=== PATIENT | male | born 1980 | race Caucasian/White ===

== ENCOUNTER 2016-12-28 12:20 | Emergency (ER) | payer OTHER ==
[2016-12-28] MEDS ORDERED: SODIUM CHLORIDE 0.9% 1,000 ML IV STA ×2 (13:30)
[2016-12-28] MEDS ORDERED: MORPHINE SULFATE 4 MG/ML SYRINGE IV STA (13:30)
[2016-12-28] MEDS ORDERED: RX INFO: IV CONTRAST WAS GIVEN 1 EACH MISC MISCELLANE PRN (13:30)
--- NOTE | 2016-12-28 13:39 | ED ---
General Adult HPI - General Chief complaint: Abdominal Pain Stated complaint: Abdominal Pain Time Seen by Provider: 12/28/16 13:24 Source: patient, RN notes reviewed, old records reviewed Mode of arrival: ambulatory Limitations: no limitations - History of Present Illness Initial comments: This is a 36-year-old male here for evaluation of bowel pain. Patient has history of ulcerative colitis. Patient will today with right-sided abdominal pain right periumbilical pain, he awoke with the pain around 8:00 and pain is persisted, got worse since. He felt nauseous but no vomiting, no recent diarrhea. Patient doesn't think he's had a fever and has no modifying factors for his pain - Related Data Home Medications Medication Instructions Recorded Confirmed Diazepam [Valium] 5 mg PO BID 12/28/16 12/28/16 Allergies Allergy/AdvReac Type Severity Reaction Status Date / Time Steroids AdvReac Intermediate Swelling Uncoded 08/27/14 04:33 Review of Systems ROS Statement: Those systems with pertinent positive or pertinent negative responses have been documented in the HPI. ROS Other: All systems not noted in ROS Statement are negative. Past Medical History Past Medical History: GERD/Reflux Additional Past Medical History / Comment(s): Lyme's disease, colitis History of Any Multi-Drug Resistant Organisms: None Reported Past Surgical History: Hernia Repair Additional Past Surgical History / Comment(s): inguinial Hernia repair 2009 Past Anesthesia/Blood Transfusion Reactions: No Reported Reaction Past Psychological History: No Psychological Hx Reported Smoking Status: Current every day smoker Past Alcohol Use History: Daily, Heavy Past Drug Use History: None Reported - Past Family History Father Additional Family Medical History / Comment(s): Heart Disease General Exam Limitations: no limitations General appearance: alert, in no apparent distress Head exam: Present: atraumatic, normocephalic, normal inspection Eye exam: Present: normal appearance, PERRL, EOMI. Absent: scleral icterus, conjunctival injection, periorbital swelling ENT exam: Present: normal exam, mucous membranes moist Neck exam: Present: normal inspection. Absent: tenderness, meningismus, lymphadenopathy Respiratory exam: Present: normal lung sounds bilaterally. Absent: respiratory distress, wheezes, rales, rhonchi, stridor Cardiovascular Exam: Present: regular rate, normal rhythm, normal heart sounds. Absent: systolic murmur, diastolic murmur, rubs, gallop, clicks GI/Abdominal exam: Present: soft, tenderness, guarding, normal bowel sounds. Absent: distended, rebound, rigid Extremities exam: Present: normal inspection, full ROM, normal capillary refill. Absent: tenderness, pedal edema, joint swelling, calf tenderness Back exam: Present: normal inspection Neurological exam: Present: alert, oriented X3, CN II-XII intact Psychiatric exam: Present: normal affect, normal mood Skin exam: Present: warm, dry, intact, normal color. Absent: rash Course Vital Signs 12/28/16 12/28/16 12:46 14:32 Temperature 98.9 F 98.0 F Pulse Rate 63 62 Respiratory 18 20 Rate Blood Pressure 127/68 140/81 O2 Sat by Pulse 97 98 Oximetry - Reevaluation(s) Reevaluation #1: 12/28/16 14:49 Patient's pain at this time is resolved Medical Decision Making - Medical Decision Making 36 male to the ER for evaluation of bowel pain, CT and pelvis is negative lab work is normal patient can be discharged home, follow-up with family doctor for recurrent colitis - Lab Data Result diagrams: 12/28/16 13:15 12/28/16 13:15 Lab Results 12/28/16 12/28/16 Range/Units 13:15 13:15 WBC 7.3 (3.8-10.6) k/uL RBC 5.26 (4.30-5.90) m/uL Hgb 16.9 (13.0-17.5) gm/dL Hct 49.1 (39.0-53.0) % MCV 93.4 (80.0-100.0) fL MCH 32.1 (25.0-35.0) pg MCHC 34.4 (31.0-37.0) g/dL RDW 12.2 (11.5-15.5) % Plt Count 247 (150-450) k/uL Neutrophils % 73 % Lymphocytes % 19 % Monocytes % 4 % Eosinophils % 1 % Basophils % 1 % Neutrophils # 5.4 (1.3-7.7) k/uL Lymphocytes # 1.4 (1.0-4.8) k/uL Monocytes # 0.3 (0-1.0) k/uL Eosinophils # 0.1 (0-0.7) k/uL Basophils # 0.1 (0-0.2) k/uL Sodium 140 (137-145) mmol/L Potassium 4.2 (3.5-5.1) mmol/L Chloride 104 (98-107) mmol/L Carbon Dioxide 25 (22-30) mmol/L Anion Gap 11 mmol/L BUN 13 (9-20) mg/dL Creatinine 0.96 (0.66-1.25) mg/dL Est GFR (MDRD) Af Amer >60 (>60 ml/min/1.73 sqM) Est GFR (MDRD) Non-Af >60 (>60 ml/min/1.73 sqM) Glucose 73 L (74-99) mg/dL Calcium 9.5 (8.4-10.2) mg/dL Total Bilirubin 0.9 (0.2-1.3) mg/dL AST 29 (17-59) U/L ALT 26 (21-72) U/L Alkaline Phosphatase 44 (38-126) U/L Total Protein 7.1 (6.3-8.2) g/dL Albumin 4.2 (3.5-5.0) g/dL Amylase 51 (30-110) U/L Lipase 75 (23-300) U/L - Radiology Data Radiology results: report reviewed (CT head and pelvis negative for acute disease), image reviewed Disposition Clinical Impression: Abdominal pain, Colitis Disposition: HOME SELF-CARE Condition: Good Instructions: Abdominal Pain (ED) Referrals: Trace De Jesus MD [Primary Care Provider] - 1-2 days
[2016-12-28 13:48] LABS: Basophils # (A) 0.1 k/uL (0-0.2); Basophils % (A) 1 %; CH 33.2; CHCM 35.7; Eosinophils # (A) 0.1 k/uL (0-0.7); Eosinophils % (A) 1 %; HCT 49.1 % (39.0-53.0); HDW 2.61; HGB 16.9 gm/dL (13.0-17.5); Luc # (Auto) 0.14; Luc % (Auto) 2; Lymphocytes # (A) 1.4 k/uL (1.0-4.8); Lymphocytes % (A) 19 %; MCH 32.1 pg (25.0-35.0); MCHC 34.4 g/dL (31.0-37.0); MCV 93.4 fL (80.0-100.0); Mean Platelet Volume 6.4; Monocytes # (A) 0.3 k/uL (0-1.0); Monocytes % (A) 4 %; Neutrophils # (A) 5.4 k/uL (1.3-7.7); Neutrophils % (A) 73 %; RBC 5.26 m/uL (4.30-5.90); RDW 12.2 % (11.5-15.5); WBC 7.3 k/uL (3.8-10.6); WBC (Perox) 7.22
[2016-12-28 13:56] LABS: ALT 26 U/L (21-72); AST 29 U/L (17-59); Alkaline Phosphatase 44 U/L (38-126); Amylase 51 U/L (30-110); Anion Gap 11 mmol/L; Blood Urea Nitrogen 13 mg/dL (9-20); Calcium 9.5 mg/dL (8.4-10.2); Carbon Dioxide 25 mmol/L (22-30); Chloride 104 mmol/L (98-107); Glucose 73 mg/dL (74-99); Non-African American GFR(MDRD) >60 (>60 ml/min/1.73 sqM); Potassium 4.2 mmol/L (3.5-5.1); Sodium 140 mmol/L (137-145); Total Bilirubin 0.9 mg/dL (0.2-1.3); Total Protein 7.1 g/dL (6.3-8.2)
--- NOTE | 2016-12-28 14:37 | CT ---
EXAMINATION TYPE: CT abdomen pelvis w con DATE OF EXAM: 12/28/2016 2:23 PM COMPARISON: 08/27/2014 HISTORY: RLQ pain CT DLP: 474.5 mGycm Automated exposure control for dose reduction was used. CONTRAST: CT scan of the abdomen pelvis is performed with IV Contrast, patient injected with 100 mL of Omnipaqu e 300. FINDINGS- LUNG BASES- No significant abnormality is appreciated. LIVER/GB- No gross abnormality is appreciated. PANCREAS- No gross abnormality is seen. SPLEEN- No gross abnormality is seen. ADRENALS- No gross abnormality is seen. KIDNEYS/BLADDER- no hydronephrosis nephrolithiasis or renal mass. BOWEL- no bowel dilatation. Appendix is not identified. LYMPH NODES- No greater than 1cm abdominal or pelvic lymph nodes are appreciated. OSSEOUS STRUCTURES- No significant abnormality is seen. OTHER-aorta of normal caliber. IMPRESSION- 1. Appendix is not seen with certainty. No definite inflammatory changes within the right lower quadr ant. Correlate clinically. 2. Nonspecific gas pattern. 3. No evidence of hydronephrosis or nephrolithiasis.
[2016-12-28 15:12] VITALS: BP 140/85; PULSE 65; RESP 18; TEMP 99
== END 2016-12-28 15:11 | disposition home or self-care (01) ==
LOC: EC 12:20
DX: K52.9 Noninfective gastroenteritis and colitis, unspecified (principal); Z88.8 Allergy status to other drugs, medicaments and biological substances; F17.200 Nicotine dependence, unspecified, uncomplicated; K51.90 Ulcerative colitis, unspecified, without complications
CPT/HCPCS: 36415; 80053; 82150; 83690; 85025; 74177; 96374; 96361; 99284; J2270; Q9967

== ENCOUNTER 2020-05-24 14:35 | Emergency (ER) | payer OTHER ==
[2020-05-24 14:41] VITALS: BP 117/75; PULSE 56; RESP 18; TEMP 98.4
--- NOTE | 2020-05-24 15:28 | XR ---
EXAMINATION TYPE: XR forearm LT DATE OF EXAM: 05/24/2020 COMPARISON: None HISTORY: Foreign body, pain TECHNIQUE: 2 view left forearm FINDINGS: No acute fractures or dislocations are evident. The soft tissues appear normal. No radiopaque foreign bodies are identified. IMPRESSION: 1. Normal left forearm. 2. No radiopaque foreign bodies identified.
--- NOTE | 2020-05-24 15:42 | ED ---
Recheck HPI <WillHoward - Last Filed: 05/24/20 15:54> - General Source: patient, RN notes reviewed Mode of arrival: ambulatory Limitations: no limitations <Golden Uribe - Last Filed: 05/24/20 15:57> - General Chief Complaint: Recheck/Abnormal Lab/Rx Stated Complaint: L Arm Foreign Body Time Seen by Provider: 05/24/20 14:44 - History of Present Illness Initial Comments: 40-year-old male presents emergency Department chief complaint of foreign body left forearm. Patient had an IV placed by [facility] 16 days ago. Patient states he had instant pain from it states that they had to remove it and placed IV in his other arm. Patient states that shortly after the visit he noticed swelling and pain within the vein and states that was initially a blood clot states that he cannot feel piece of plastic. Patient believes this is related to the IV catheter. Denies any swelling in his left arm denies any redness fevers or chills. Patient denies any chest pain or shortness breath (Golden Uribe) - Related Data Home Medications Medication Instructions Recorded Confirmed diazePAM [Valium] 5 mg PO BID 12/28/16 12/28/16 Allergies Allergy/AdvReac Type Severity Reaction Status Date / Time Steroids AdvReac Intermediate Swelling Uncoded 05/24/20 14:41 Review of Systems ROS Other: All systems not noted in ROS Statement are negative. <WillHoward - Last Filed: 05/24/20 15:54> ROS Other: All systems not noted in ROS Statement are negative. <Golden Uribe - Last Filed: 05/24/20 15:57> ROS Statement: Those systems with pertinent positive or pertinent negative responses have been documented in the HPI. Past Medical History Past Medical History: GERD/Reflux Additional Past Medical History / Comment(s): Lyme's disease, colitis History of Any Multi-Drug Resistant Organisms: None Reported Past Surgical History: Hernia Repair Additional Past Surgical History / Comment(s): inguinial Hernia repair 2009 Past Anesthesia/Blood Transfusion Reactions: No Reported Reaction Past Psychological History: No Psychological Hx Reported Past Alcohol Use History: Daily, Heavy Past Drug Use History: None Reported - Past Family History Father Additional Family Medical History / Comment(s): Heart Disease <Golden Uribe - Last Filed: 05/24/20 15:57> General Exam Limitations: no limitations General appearance: alert, in no apparent distress Head exam: Present: atraumatic, normocephalic, normal inspection Respiratory exam: Present: normal lung sounds bilaterally. Absent: respiratory distress, wheezes, rales, rhonchi, stridor Cardiovascular Exam: Present: regular rate, normal rhythm, normal heart sounds. Absent: systolic murmur, diastolic murmur, rubs, gallop, clicks Extremities exam: Present: other (Left forearm there is a palpable superficial hard foreign body no erythema no swelling pulses equal bilaterally no tenderness to the left axilla) Neurological exam: Present: alert Skin exam: Present: warm, dry, intact, normal color. Absent: rash <Golden Uribe - Last Filed: 05/24/20 15:57> Course Vital Signs 05/24/20 14:38 Temperature 98.4 F Pulse Rate 56 L Respiratory 18 Rate Blood Pressure 117/75 O2 Sat by Pulse 98 Oximetry Medical Decision Making <Howard Solis - Last Filed: 05/24/20 15:54> - Medical Decision Making Patient also evaluated by myself, Dr. Solis. Patient does have left proximal forearm with isolated area proximal he 1 inch in the vein suspicious for retained glass foreign body. Patient states he had an IV just distal to this 16 days ago. Case was discussed with Dr. Parish who will follow-up with the patient the office. (Howard Solis) Disposition <Howard Solis - Last Filed: 05/24/20 15:54> Is patient prescribed a controlled substance at d/c from ED?: No Time of Disposition: :57 <Golden Uribe - Last Filed: 05/24/20 15:57> Clinical Impression: Foreign body of skin of left upper extremity Disposition: HOME SELF-CARE Condition: Stable Instructions (If sedation given, give patient instructions): Soft Tissue Foreign Body (ED) Additional Instructions: Please return to the Emergency Department if symptoms worsen or any other concerns. Referrals: Trace De Jesus MD [Primary Care Provider] - 1-2 days Edvin Fritz DO [Doctor of Osteopathic Medicine] - 1-2 days
== END 2020-05-24 16:11 | disposition home or self-care (01) ==
LOC: EC 14:35
DX: S50.852A Superficial foreign body of left forearm, initial encounter (principal); Z88.8 Allergy status to other drugs, medicaments and biological substances; X58.XXXA Exposure to other specified factors, initial encounter
CPT/HCPCS: 99283

== ENCOUNTER 2020-06-19 17:41 | Emergency (ER) | payer OTHER ==
[2020-06-19 17:48] VITALS: RESP 16; TEMP 98.4
[2020-06-19] MEDS ORDERED: DIPH,PERTUS(ACELL)TETVAC-LF 0.5 ML VIAL IM ONE (17:53)
[2020-06-19 17:56] LABS: Glucose,Whole Blood 95 mg/dL (75-99)
[2020-06-19] MEDS ORDERED: SODIUM CHLORIDE 0.9% 1,000 ML IV STA (17:56)
--- NOTE | 2020-06-19 18:03 | ED ---
General Adult HPI - General Chief complaint: Wound/Laceration Stated complaint: Lacerations Time Seen by Provider: 06/19/20 17:43 Source: patient, EMS Mode of arrival: EMS Limitations: no limitations - History of Present Illness Initial comments: Patient presents the ED by ambulance for evaluation. Patient states that he was "messing around" with his significant other when she accidentally cut the left side of his neck with the end of a "grill brush". Patient states that his wound was initially bleeding quite a bit, but then it stopped. Per EMS, the patient's wound has not been bleeding since they have been with the patient. Patient admits to drinking about 7 beers today. Patient denies illicit drug use. Patient denies intentional injury. Patient denies sustaining any other injury, headache, posterior neck pain, chest pain, dyspnea, lightheadedness or dizziness, abdominal pain, nausea or vomiting, or any other symptoms or complaints. Patient denies use of any anticoagulant medication. Patient states that he is unsure of his last tetanus shot. - Related Data Home Medications Medication Instructions Recorded Confirmed diazePAM [Valium] 5 mg PO BID PRN 12/28/16 06/19/20 Magnesium(Unknown Dose) 1 tab PO BID 06/19/20 06/19/20 Milk Thistle 150 mg PO BID 06/19/20 06/19/20 Allergies Allergy/AdvReac Type Severity Reaction Status Date / Time Steroids AdvReac Intermediate Swelling/Patient Uncoded 06/19/20 19:15 has [place] disease Review of Systems ROS Statement: Those systems with pertinent positive or pertinent negative responses have been documented in the HPI. ROS Other: All systems not noted in ROS Statement are negative. Past Medical History Past Medical History: GERD/Reflux Additional Past Medical History / Comment(s): Lyme's disease, colitis History of Any Multi-Drug Resistant Organisms: None Reported Past Surgical History: Hernia Repair Additional Past Surgical History / Comment(s): inguinial Hernia repair 2009 Past Anesthesia/Blood Transfusion Reactions: No Reported Reaction Past Psychological History: No Psychological Hx Reported Smoking Status: Current every day smoker Past Alcohol Use History: Daily, Heavy Past Drug Use History: None Reported - Past Family History Father Additional Family Medical History / Comment(s): Heart Disease General Exam Limitations: no limitations General appearance: alert, appears intoxicated Head exam: Present: atraumatic, normocephalic Eye exam: Present: PERRL, EOMI ENT exam: Present: normal oropharynx, mucous membranes moist Neck exam: Present: other (A 4.5 cm, linear, subcutaneous laceration is noted to the patient's left anterolateral neck; the wound was explored and probed (using a cotton swab) myself-> I was able to visualize the base of entire wound (base is superficial to platysma muscle) except for a very small area along the inferomedial margin of the wound which I was unable to probe to the base; no active bleeding is noted whatsoever at this time). Absent: tenderness Respiratory exam: Present: normal lung sounds bilaterally. Absent: respiratory distress, wheezes, rales, rhonchi Cardiovascular Exam: Present: regular rate, normal rhythm, normal heart sounds, other (Normal radial pulses bilaterally) GI/Abdominal exam: Present: soft. Absent: distended, tenderness, guarding Extremities exam: Present: normal inspection, full ROM. Absent: tenderness, pedal edema Back exam: Present: normal inspection. Absent: tenderness Neurological exam: Present: alert, oriented X3, CN II-XII intact. Absent: motor sensory deficit Psychiatric exam: Present: normal affect, normal mood Skin exam: Present: warm, dry, normal color Course Vital Signs 06/19/20 06/19/20 06/19/20 17:42 18:19 18:47 Temperature 98.4 F Pulse Rate 84 92 73 Respiratory 16 16 16 Rate Blood Pressure 125/75 134/81 123/92 O2 Sat by Pulse 96 95 96 Oximetry - Reevaluation(s) Reevaluation #1: 06/19/20 17:52 Case and H&P were discussed with Dr. Branch (trauma surg) after my evaluation of the patient. He agrees with not activating trauma code at this time. He recommends calling him back if the patient's wound begins to bleed. He has no further recommendations at this time. 06/19/20 19:11 Test results/CT angiogram neck report were discussed with Dr. Branch. He states that he has viewed the patient's CT images himself, and he states that he does not see anything concerning either. He agrees with plan for me to repair the patient's laceration in the ED, and he recommends/accepts observational hospital admission. He has no further recommendations at this time. 06/19/20 20:59 Dr. Branch was notified that the patient eloped from the ED. EKG Findings - EKG Comments: EKG Findings:: Normal sinus rhythm, ventricular rate of 73 bpm, no ectopy, normal UT and QRS intervals, normal QT interval, normal axis, no ST or T-wave abnormality Procedures - Laceration Laceration #1 Consent Obtained: verbal consent Indication: laceration Site: neck Size (cm): 4 Description: linear, clean Depth: simple, single layer Anesthetic Used: lidocaine 1% Anesthesia Technique: local infiltration Amount (mls): 5 Pre-repair: wound explored, irrigated extensively Type of Sutures: nylon Size of Sutures: 4-0 Number of Sutures: 8 Technique: simple, interrupted Patient Tolerated Procedure: well, no complications Medical Decision Making - Medical Decision Making I repaired the patient's laceration in the ED without complication after copious wound irrigation. Patient was refusing to be admitted to the hospital unless he was allowed to go outside for a cigarette. Despite alcohol abuse, patient was A and O 4, completely coherent and with steady gait. Because I was concerned that the patient may elope from the ED, I explained to him the risks of leaving AMA/eloping, including further morbidity, bleeding, and even in the worse case situation. Patient was able to verbalize understanding of these risks, and he promised to return to the ED once he finished his cigarette. He stated that he wasn't sure if he would agree to admission, but he would think about it and return to the ED. Patient was also counseled about neck lacerations and clearly explained return/follow up instructions in case he chose to leave AMA/elope. Patient eloped from the ED and never returned after having his cigarette. Dr. Branch was notified. - Lab Data Result diagrams: 06/19/20 17:55 06/19/20 17:55 Lab Results 06/19/20 06/19/20 06/19/20 Range/Units 17:55 17:55 17:55 WBC 8.9 (3.8-10.6) k/uL RBC 4.91 (4.30-5.90) m/uL Hgb 15.0 (13.0-17.5) gm/dL Hct 44.3 (39.0-53.0) % MCV 90.3 (80.0-100.0) fL MCH 30.5 (25.0-35.0) pg MCHC 33.8 (31.0-37.0) g/dL RDW 12.3 (11.5-15.5) % Plt Count 271 (150-450) k/uL Neutrophils % 63 % Lymphocytes % 27 % Monocytes % 4 % Eosinophils % 2 % Basophils % 1 % Neutrophils # 5.5 (1.3-7.7) k/uL Lymphocytes # 2.4 (1.0-4.8) k/uL Monocytes # 0.4 (0-1.0) k/uL Eosinophils # 0.2 (0-0.7) k/uL Basophils # 0.1 (0-0.2) k/uL PT 9.5 (9.0-12.0) sec INR 0.9 (<1.2) APTT 21.3 L (22.0-30.0) sec Sodium (137-145) mmol/L Potassium (3.5-5.1) mmol/L Chloride (98-107) mmol/L Carbon Dioxide (22-30) mmol/L Anion Gap mmol/L BUN (9-20) mg/dL Creatinine (0.66-1.25) mg/dL Est GFR (CKD-EPI)AfAm (>60 ml/min/1.73 sqM) Est GFR (CKD-EPI)NonAf (>60 ml/min/1.73 sqM) Glucose (74-99) mg/dL POC Glucose (mg/dL) 95 (75-99) mg/dL POC Glu Road Driver Gloria Bates Plasma Lactic Acid Ministerio (0.7-2.0) mmol/L Calcium (8.4-10.2) mg/dL Total Bilirubin (0.2-1.3) mg/dL AST (17-59) U/L ALT (4-49) U/L Alkaline Phosphatase (38-126) U/L Total Creatine Kinase (55-170) U/L CK-MB (CK-2) (0.0-2.4) ng/mL CK-MB (CK-2) Rel Index Troponin I (0.000-0.034) ng/mL Total Protein (6.3-8.2) g/dL Albumin (3.5-5.0) g/dL Amylase (30-110) U/L Lipase (23-300) U/L Urine Color Urine Appearance (Clear) Urine pH (5.0-8.0) Ur Specific Brooks (1.001-1.035) Urine Protein (Negative) Urine Glucose (UA) (Negative) Urine Ketones (Negative) Urine Blood (Negative) Urine Nitrite (Negative) Urine Bilirubin (Negative) Urine Urobilinogen (<2.0) mg/dL Ur Leukocyte Esterase (Negative) Urine Opiates Screen (NotDetected) Ur Oxycodone Screen (NotDetected) Urine Methadone Screen (NotDetected) Ur Propoxyphene Screen (NotDetected) Ur Barbiturates Screen (NotDetected) U Tricyclic Antidepress (NotDetected) Ur Phencyclidine Scrn (NotDetected) Ur Amphetamines Screen (NotDetected) U Methamphetamines Scrn (NotDetected) U Benzodiazepines Scrn (NotDetected) Urine Cocaine Screen (NotDetected) U Marijuana (THC) Screen (NotDetected) Serum Alcohol mg/dL Blood Type Blood Type Recheck Bld Type Recheck Status Antibody Screen Spec Expiration Date 06/19/20 06/19/20 06/19/20 Range/Units 17:55 17:55 17:55 WBC (3.8-10.6) k/uL RBC (4.30-5.90) m/uL Hgb (13.0-17.5) gm/dL Hct (39.0-53.0) % MCV (80.0-100.0) fL MCH (25.0-35.0) pg MCHC (31.0-37.0) g/dL RDW (11.5-15.5) % Plt Count (150-450) k/uL Neutrophils % % Lymphocytes % % Monocytes % % Eosinophils % % Basophils % % Neutrophils # (1.3-7.7) k/uL Lymphocytes # (1.0-4.8) k/uL Monocytes # (0-1.0) k/uL Eosinophils # (0-0.7) k/uL Basophils # (0-0.2) k/uL PT (9.0-12.0) sec INR (<1.2) APTT (22.0-30.0) sec Sodium 136 L (137-145) mmol/L Potassium 3.9 (3.5-5.1) mmol/L Chloride 106 (98-107) mmol/L Carbon Dioxide 18 L (22-30) mmol/L Anion Gap 12 mmol/L BUN 10 (9-20) mg/dL Creatinine 0.79 (0.66-1.25) mg/dL Est GFR (CKD-EPI)AfAm >90 (>60 ml/min/1.73 sqM) Est GFR (CKD-EPI)NonAf >90 (>60 ml/min/1.73 sqM) Glucose 93 (74-99) mg/dL POC Glucose (mg/dL) (75-99) mg/dL POC Glu Road Driver ID Plasma Lactic Acid Ministerio (0.7-2.0) mmol/L Calcium 9.2 (8.4-10.2) mg/dL Total Bilirubin 0.4 (0.2-1.3) mg/dL AST 26 (17-59) U/L ALT 20 (4-49) U/L Alkaline Phosphatase 50 (38-126) U/L Total Creatine Kinase 138 (55-170) U/L CK-MB (CK-2) 0.6 (0.0-2.4) ng/mL CK-MB (CK-2) Rel Index 0.4 Troponin I <0.012 (0.000-0.034) ng/mL Total Protein 6.9 (6.3-8.2) g/dL Albumin 4.4 (3.5-5.0) g/dL Amylase 55 (30-110) U/L Lipase 105 (23-300) U/L Urine Color Urine Appearance (Clear) Urine pH (5.0-8.0) Ur Specific Brooks (1.001-1.035) Urine Protein (Negative) Urine Glucose (UA) (Negative) Urine Ketones (Negative) Urine Blood (Negative) Urine Nitrite (Negative) Urine Bilirubin (Negative) Urine Urobilinogen (<2.0) mg/dL Ur Leukocyte Esterase (Negative) Urine Opiates Screen (NotDetected) Ur Oxycodone Screen (NotDetected) Urine Methadone Screen (NotDetected) Ur Propoxyphene Screen (NotDetected) Ur Barbiturates Screen (NotDetected) U Tricyclic Antidepress (NotDetected) Ur Phencyclidine Scrn (NotDetected) Ur Amphetamines Screen (NotDetected) U Methamphetamines Scrn (NotDetected) U Benzodiazepines Scrn (NotDetected) Urine Cocaine Screen (NotDetected) U Marijuana (THC) Screen (NotDetected) Serum Alcohol 200 mg/dL Blood Type A Positive Blood Type Recheck A Pos Bld Type Recheck Status No Antibody Screen NEGATIVE Spec Expiration Date 06/22/2020235406/19/20 06/19/20 Range/Units 17:55 17:55 WBC (3.8-10.6) k/uL RBC (4.30-5.90) m/uL Hgb (13.0-17.5) gm/dL Hct (39.0-53.0) % MCV (80.0-100.0) fL MCH (25.0-35.0) pg MCHC (31.0-37.0) g/dL RDW (11.5-15.5) % Plt Count (150-450) k/uL Neutrophils % % Lymphocytes % % Monocytes % % Eosinophils % % Basophils % % Neutrophils # (1.3-7.7) k/uL Lymphocytes # (1.0-4.8) k/uL Monocytes # (0-1.0) k/uL Eosinophils # (0-0.7) k/uL Basophils # (0-0.2) k/uL PT (9.0-12.0) sec INR (<1.2) APTT (22.0-30.0) sec Sodium (137-145) mmol/L Potassium (3.5-5.1) mmol/L Chloride (98-107) mmol/L Carbon Dioxide (22-30) mmol/L Anion Gap mmol/L BUN (9-20) mg/dL Creatinine (0.66-1.25) mg/dL Est GFR (CKD-EPI)AfAm (>60 ml/min/1.73 sqM) Est GFR (CKD-EPI)NonAf (>60 ml/min/1.73 sqM) Glucose (74-99) mg/dL POC Glucose (mg/dL) (75-99) mg/dL POC Glu Road Driver ID Plasma Lactic Acid Ministerio 1.9 (0.7-2.0) mmol/L Calcium (8.4-10.2) mg/dL Total Bilirubin (0.2-1.3) mg/dL AST (17-59) U/L ALT (4-49) U/L Alkaline Phosphatase (38-126) U/L Total Creatine Kinase (55-170) U/L CK-MB (CK-2) (0.0-2.4) ng/mL CK-MB (CK-2) Rel Index Troponin I (0.000-0.034) ng/mL Total Protein (6.3-8.2) g/dL Albumin (3.5-5.0) g/dL Amylase (30-110) U/L Lipase (23-300) U/L Urine Color Colorless Urine Appearance Clear (Clear) Urine pH 5.0 (5.0-8.0) Ur Specific Brooks 1.002 (1.001-1.035) Urine Protein Negative (Negative) Urine Glucose (UA) Negative (Negative) Urine Ketones Negative (Negative) Urine Blood Negative (Negative) Urine Nitrite Negative (Negative) Urine Bilirubin Negative (Negative) Urine Urobilinogen <2.0 (<2.0) mg/dL Ur Leukocyte Esterase Negative (Negative) Urine Opiates Screen Not Detected (NotDetected) Ur Oxycodone Screen Not Detected (NotDetected) Urine Methadone Screen Not Detected (NotDetected) Ur Propoxyphene Screen Not Detected (NotDetected) Ur Barbiturates Screen Not Detected (NotDetected) U Tricyclic Antidepress Not Detected (NotDetected) Ur Phencyclidine Scrn Not Detected (NotDetected) Ur Amphetamines Screen Not Detected (NotDetected) U Methamphetamines Scrn Not Detected (NotDetected) U Benzodiazepines Scrn Detected H (NotDetected) Urine Cocaine Screen Not Detected (NotDetected) U Marijuana (THC) Screen Not Detected (NotDetected) Serum Alcohol mg/dL Blood Type Blood Type Recheck Bld Type Recheck Status Antibody Screen Spec Expiration Date - Radiology Data Radiology results: report reviewed (CT angiogram neck is negative), image reviewed (Chest x-ray shows left basilar atelectasis; pelvis x-ray shows no acute fracture or dislocation) Disposition Clinical Impression: Laceration of neck, Alcohol abuse Disposition: Left Against Medical Advice Condition: Stable Is patient prescribed a controlled substance at d/c from ED?: No Time of Disposition: 20:51 (Dre)
[2020-06-19 18:12] LABS: Basophils # (A) 0.1 k/uL (0-0.2); Basophils % (A) 1 %; Eosinophils # (A) 0.2 k/uL (0-0.7); Eosinophils % (A) 2 %; HCT 44.3 % (39.0-53.0); Lymphocytes # (A) 2.4 k/uL (1.0-4.8); Lymphocytes % (A) 27 %; MCH 30.5 pg (25.0-35.0); MCHC 33.8 g/dL (31.0-37.0); MCV 90.3 fL (80.0-100.0); Mean Platelet Volume 6.6; Monocytes # (A) 0.4 k/uL (0-1.0); Monocytes % (A) 4 %; Neutrophils # (A) 5.5 k/uL (1.3-7.7); Neutrophils % (A) 63 %; Platelet Count 271 k/uL (150-450); RBC 4.91 m/uL (4.30-5.90); RDW 12.3 % (11.5-15.5); WBC 8.9 k/uL (3.8-10.6)
[2020-06-19 18:13] LABS: Appearance,Urine Clear (Clear); Bilirubin,Urine Negative (Negative); Blood,Urine Negative (Negative); Color,Urine Colorless; Glucose,Urine (UA) Negative (Negative); Ketones,Urine Negative (Negative); Leukocyte Esterase,Urine Negative (Negative); Nitrite,Urine Negative (Negative); Protein,Urine Negative (Negative); Specific Gravity,Urine 1.002 (1.001-1.035); Urobilinogen,Urine <2.0 mg/dL (<2.0)
[2020-06-19 18:20] LABS: Creatine Kinase 138 U/L (55-170)
[2020-06-19 18:28] LABS: INR 0.9 (<1.2); Prothrombin Time 9.5 sec (9.0-12.0)
[2020-06-19 18:29] LABS: Amphetamine Screen,Urine Not Detected (NotDetected); Barbiturate Screen,Urine Not Detected (NotDetected); Benzodiazepines Screen,Urine Detected (NotDetected); Cocaine Screen,Urine Not Detected (NotDetected); Methadone Screen, Urine Not Detected (NotDetected); Opiate Screen,Urine Not Detected (NotDetected); Oxycodone Screen, Urine Not Detected (NotDetected); Phencyclidine Screen,Urine Not Detected (NotDetected); Tricyclic Antidepressant,Urine Not Detected (NotDetected); Urn Cannabinoid Scrn Not Detected (NotDetected)
[2020-06-19 18:32] LABS: Creatine Kinase MB 0.6 ng/mL (0.0-2.4); Partial Thromboplastin Time 21.3 sec (22.0-30.0); Troponin I <0.012 ng/mL (0.000-0.034)
[2020-06-19 18:36] LABS: ALT 20 U/L (4-49); AST 26 U/L (17-59); African American GFR (CKD) >90 (>60 ml/min/1.73 sqM); Albumin 4.4 g/dL (3.5-5.0); Alkaline Phosphatase 50 U/L (38-126); Amylase 55 U/L (30-110); Anion Gap 12 mmol/L; Blood Urea Nitrogen 10 mg/dL (9-20); Calcium 9.2 mg/dL (8.4-10.2); Carbon Dioxide 18 mmol/L (22-30); Chloride 106 mmol/L (98-107); Glucose 93 mg/dL (74-99); Non-African American GFR(CKD) >90 (>60 ml/min/1.73 sqM); Potassium 3.9 mmol/L (3.5-5.1); Sodium 136 mmol/L (137-145); Total Bilirubin 0.4 mg/dL (0.2-1.3); Total Protein 6.9 g/dL (6.3-8.2)
[2020-06-19 18:39] LABS: Alcohol 200 mg/dL
[2020-06-19 18:48] VITALS: BP 123/92; PULSE 73
--- NOTE | 2020-06-19 18:53 | XR ---
EXAMINATION TYPE: XR pelvis AP view DATE OF EXAM: 06/19/2020 COMPARISON: NONE HISTORY: Trauma. Pain. TECHNIQUE: Single view FINDINGS: Pelvic ring is intact. Proximal femurs and hip joints are intact. Sacroiliac joints appear normal. IMPRESSION: Normal pelvis.
--- NOTE | 2020-06-19 18:54 | XR ---
EXAMINATION TYPE: XR chest 1V portable DATE OF EXAM: 06/19/2020 COMPARISON: NONE HISTORY: Trauma. Pain. TECHNIQUE: Single view FINDINGS: There is some linear density at the left lung base. The other lung brannon are clear. There are no hilar masses. There are chest leads. Bony thorax is intact. IMPRESSION: There is some infiltrate and atelectasis left lung base. Normal heart.
--- NOTE | 2020-06-19 19:04 | CT ---
EXAMINATION TYPE: CT angio neck DATE OF EXAM: 06/19/2020 COMPARISON: HISTORY: Left/anterior neck laceration. CT DLP: 549.1 mGycm Automated exposure control for dose reduction was used. CONTRAST: Performed with IV Contrast, patient injected with 65ml mL of Isovue 370. Images were obtained from the aortic arch to the skull base with IV contrast and 3-D post processed i mages. There is normal branching pattern of the great vessels on the aortic arch. There is arterial flow in the vertebral arteries bilaterally. There is arterial flow in the common internal and external caroti d arteries bilaterally. There is wide patency of the carotid artery bifurcations. There is no evidenc e of carotid or vertebral artery aneurysm or dissection. There is no evidence of stenosis. There is a rterial flow in the vertebrobasilar artery system. There is normal contrast opacification of the jugu lar veins. I see no evidence of a neck mass. Thyroid gland is intact. There is no pathologic fluid co llection. There is soft tissue air bubbles of the anterior upper neck on the left side consistent wit h laceration. This is adjacent to the submandibular salivary gland. IMPRESSION: Negative CT angiogram of the neck. Laceration of the left anterior neck.
[2020-06-19] MEDS ORDERED: SODIUM CHLORIDE 0.9% 1,000 ML IV SCH (19:15)
[2020-06-19] MEDS ORDERED: LIDOCAINE 2% INJ 20 MG/ML (20 ML MDV) SQ STA (20:02)
[2020-06-19] MEDS ORDERED: LIDOCAINE 1% INJ 10MG/ML (20 ML MDV) SQ ONE (20:07)
== END 2020-06-19 20:53 | disposition left against medical advice (07) ==
LOC: EC 17:41 → UNDOADMOB 19:15 → 5NMEDONC 19:15 → EC 20:53
DX: S11.91XA Laceration without foreign body of unspecified part of neck, initial encounter (principal); F10.10 Alcohol abuse, uncomplicated; Z88.8 Allergy status to other drugs, medicaments and biological substances; Z23 Encounter for immunization; F17.210 Nicotine dependence, cigarettes, uncomplicated; W26.8XXA Contact with other sharp object(s), not elsewhere classified, initial encounter; Y93.89 Activity, other specified; Y92.009 Unspecified place in unspecified non-institutional (private) residence as the place of occurrence of the external cause
CPT/HCPCS: 12002; 90471; 96361; 96360; 99284; 36415; 86900; 86901; 80053; 82150; 82550; 82553; 83605; 83690; 84484; 85025; 85610; 85730; 86850; 81003; 80306; 72170; 71045; 70498; 90715; G0480; J2001; Q9967; 80320

== ENCOUNTER 2021-05-13 12:22 | Emergency (ER) | payer OTHER ==
[2021-05-13 12:25] VITALS: BP 138/94; PULSE 87; RESP 16; TEMP 98.2
--- NOTE | 2021-05-13 12:55 | ED ---
General Adult HPI - General Source: patient Mode of arrival: ambulatory Limitations: no limitations <Veronica Renee - Last Filed: 05/13/21 12:55> - General Source: RN notes reviewed <Vitaly Corona - Last Filed: 05/13/21 13:19> - General Chief complaint: Skin/Abscess/Foreign Body Stated complaint: skin problem & elbow swelling Time Seen by Provider: 05/13/21 12:26 - History of Present Illness Initial comments: 41-year-old male with a past medical history of Lyme disease presents to the emergency room for a chief complaint of tick bite. Patient reports that last Sunday he was working in the [employer]. He reports that 2-1/2 days later he noticed a tick on the right side of his lower abdomen. Patient did remove the tick. He states it was a deer tick. Patient reports a few days after that he developed a bull's-eye rash on the right side of the abdomen. Patient reports he wants antibiotics. He states that he had Lyme disease in the past and does not want to take his chances.Patient has no other complaints at this time including shortness of breath, chest pain, abdominal pain, nausea or vomiting, headache, or visual changes. (Vitaly Corona) - Related Data Home Medications Medication Instructions Recorded Confirmed diazePAM [Valium] 5 mg PO BID PRN 12/28/16 06/19/20 Magnesium(Unknown Dose) 1 tab PO BID 06/19/20 06/19/20 Milk Thistle 150 mg PO BID 06/19/20 06/19/20 Previous Rx's Medication Instructions Recorded Doxycycline [Vibramycin] 100 mg PO BID 21 Days #42 capsule 05/13/21 Allergies Allergy/AdvReac Type Severity Reaction Status Date / Time Steroids AdvReac Intermediate Swelling/Patient Uncoded 05/13/21 12:23 has [place] disease Review of Systems ROS Other: All systems not noted in ROS Statement are negative. <Veronica Renee - Last Filed: 05/13/21 12:55> ROS Other: All systems not noted in ROS Statement are negative. <Vitaly Corona - Last Filed: 05/13/21 13:19> ROS Statement: Those systems with pertinent positive or pertinent negative responses have been documented in the HPI. Past Medical History Past Medical History: GERD/Reflux Additional Past Medical History / Comment(s): Lyme's disease, colitis History of Any Multi-Drug Resistant Organisms: None Reported Past Surgical History: Hernia Repair Additional Past Surgical History / Comment(s): inguinial Hernia repair 2009 Past Anesthesia/Blood Transfusion Reactions: No Reported Reaction Past Psychological History: No Psychological Hx Reported Smoking Status: Current every day smoker Past Alcohol Use History: None Reported, Daily, Heavy Past Drug Use History: None Reported - Past Family History Father Additional Family Medical History / Comment(s): Heart Disease <Veronica Renee A - Last Filed: 05/13/21 12:55> General Exam Limitations: no limitations <Veronica Renee - Last Filed: 05/13/21 12:55> General appearance: alert, in no apparent distress Head exam: Present: atraumatic, normocephalic, normal inspection Eye exam: Present: normal appearance, PERRL, EOMI. Absent: scleral icterus, conjunctival injection, periorbital swelling ENT exam: Present: normal exam, mucous membranes moist Neck exam: Present: normal inspection. Absent: tenderness, meningismus, lymphadenopathy Respiratory exam: Present: normal lung sounds bilaterally. Absent: respiratory distress, wheezes, rales, rhonchi, stridor Cardiovascular Exam: Present: regular rate, normal rhythm, normal heart sounds. Absent: systolic murmur, diastolic murmur, rubs, gallop, clicks GI/Abdominal exam: Present: soft, normal bowel sounds, other (Patient has a small rash noted around his bite on the right lower abdomen. I do not see bull's-eye rash at this time.). Absent: distended, tenderness, guarding, rebound, rigid <Vitaly Corona P - Last Filed: 05/13/21 13:19> Course Vital Signs 05/13/21 12:23 Temperature 98.2 F Pulse Rate 87 Respiratory 16 Rate Blood Pressure 138/94 O2 Sat by Pulse 99 Oximetry Medical Decision Making <Vitaly Corona P - Last Filed: 05/13/21 13:19> - Medical Decision Making Patient did show me a picture of his bull's-eye rash as well as a picture of the tick which does appear to be a deer tick. Patient does want treatment for a full 21 days of doxycycline. Patient will be given this. He will follow up with his doctor. He will return here for any worsening symptoms. (Vitaly Corona) Disposition <Veronica Renee - Last Filed: 05/13/21 12:55> Is patient prescribed a controlled substance at d/c from ED?: No Time of Disposition: 13:07 <Vitaly Corona - Last Filed: 05/13/21 13:19> Clinical Impression: Erythema migrans (Lyme disease), Tick bite Disposition: HOME SELF-CARE Condition: Good Instructions (If sedation given, give patient instructions): Lyme Disease (ED), Tick Bite (ED) Additional Instructions: Please take medication as directed. This may cause you to be sensitive to the sun so stay out of direct sunlight while taking this medication. Follow-up with your doctor in one to 2 days. Return to the emergency room for any worsening symptoms. Prescriptions: Doxycycline [Vibramycin] 100 mg PO BID 21 Days #42 capsule Referrals: Trace De Jesus MD [Primary Care Provider] - 1-2 days
== END 2021-05-13 13:14 | disposition home or self-care (01) ==
LOC: EC 12:22
DX: S30.861A Insect bite (nonvenomous) of abdominal wall, initial encounter (principal); A69.20 Lyme disease, unspecified; K21.9 Gastro-esophageal reflux disease without esophagitis; F17.200 Nicotine dependence, unspecified, uncomplicated; W57.XXXA Bitten or stung by nonvenomous insect and other nonvenomous arthropods, initial encounter
CPT/HCPCS: 99282